=== PATIENT | female | born 1965 | race Caucasian/White ===

== ENCOUNTER 2017-03-16 09:24 | Inpatient (IN) | payer OTHER ==
--- NOTE | 2017-03-16 07:43 | HP ---
DATE OF SURGERY: 03/16/2017 HISTORY OF PRESENT ILLNESS: The patient is a 51 year-old had some recent rectal bleeding and underwent a colonoscopy and found to have sigmoid colon cancer now in need of resection. PAST MEDICAL HISTORY: Hypothyroidism, anxiety, chronic lung disease from smoking. She denies any other chronic illnesses. PAST SURGICAL HISTORY: Two sections in the past. MEDICATIONS: Levothyroxine. ALLERGIES: PENICILLILN, BEE VENOM. FAMILY HISTORY: Negative in regards to this problem. SOCIAL HISTORY: One pack per day smoker, denies alcohol abuse. REVIEW OF SYSTEMS: Twelve systems reviewed per admission assessment. No chest pain or palpitations other systems negative or noncontributory as above and per preadmission questionnaire. PHYSICAL EXAMINATION: GENERAL: No acute distress. HEENT: Sclerae nonicteric. NECK: No JVD. CHEST: Equal excursion, nonlabored breathing. CVS: Regular rate and rhythm. ABDOMEN: Soft. No peritoneal signs. EXTREMITIES: No significant edema. NEURO: Alert, oriented, moving extremities symmetrically. No gross motor deficits noted. 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 I feel the patient will benefit from resection. She was discussed the options of open versus laparoscopic assisted. Long discussion of risks and benefits and she wished to proceed with laparoscopic assisted partial colectomy, reanastomosis possible open, possible ostomy. Risks and benefits explained in detail including but not limited to bleeding or infection, risk of wound complications, hernia or dehiscence or infection, risk of bowel, bladder, blood vessel, ureter issues or injury, risk of bleeding from the spleen that could possibly require splenectomy, take down of splenic flexure if necessary as well as risk of ileus, adhesion, scar formation or obstruction perioperatively or down the road. Overall risk of anastomotic complication, fistula formation, abscess or other complications possibly requiring other procedures or even ostomy at a later date, general risk of anesthesia, deep venous thrombosis, pulmonary embolism or pneumonia, risk of renal insufficiency as well as the above but not limited to, laparoscopy converting to open procedure. He understands all the above but not limited to, will proceed with laparoscopic assisted partial colectomy reanastomosis, possible ostomy, possible open depending on operative findings. The patient's insurance requires she go to [facility] so wait until availability for OR time at [facility] to be scheduled at this time.
[~2017-03-16 09:24] MED LIST: Lactated Ringers 1,000 ML IV ONE; Sensorcaine 0.25% 10 ML ONE
[2017-03-16] MEDS ORDERED: Decadron 4 MG INJ IV ONE (09:28)
[2017-03-16] MEDS ORDERED: Zofran 4 MG/2 ML VIAL IV ONE (09:28)
[2017-03-16] MEDS ORDERED: TORAdol 30 mg Injection IV ONE (09:28)
[2017-03-16] MEDS ORDERED: DIPRIVAN 200 MG/20 ML IV ONE (09:28)
[2017-03-16] MEDS ORDERED: Naropin 0.5% 30 ML VIAL IJ ONE (09:28)
[2017-03-16] MEDS ORDERED: BRIDION 200MG/2ML IV ONE (09:28)
[2017-03-16] MEDS ORDERED: Epinephrine Preservative Free 1 MG/ML IJ ONE (09:28)
[2017-03-16] MEDS ORDERED: Zemuron 100 MG/10 ML IV ONE (09:28)
[2017-03-16] MEDS ORDERED: ENTEREG 12 MG PO ONE (09:50)
[2017-03-16] MEDS ORDERED: DILAUDID 2 MG INJECTION IV ONE (09:53)
[2017-03-16] MEDS ORDERED: SUBLIMAZE 250 MCG/5 ML IV ONE (09:53)
[2017-03-16] MEDS ORDERED: Valium 5 MG PO ONE (09:57)
[2017-03-16] MEDS ORDERED: Levofloxacin 500MG/100ML D5W 500 MG/100 ML BAG IV ONE (10:00)
[2017-03-16] MEDS ORDERED: Levofloxacin 500MG/100ML D5W 500 MG/100 ML BAG IV SCH (10:00)
[2017-03-16] MEDS ORDERED: Lactated Ringers 1,000 ML IV ONE (10:00)
[2017-03-16] MEDS ORDERED: CLINDAMYCIN-D5W 900 MG/50 ML*** 900 MG/50 ML BAG IV SCH (10:00)
[2017-03-16] MEDS ORDERED: Lactated Ringers 1,000 ML IV SCH (10:00)
[2017-03-16 10:27] LABS: Hematocrit 41.7 % (35-47); Hemoglobin 13.6 gm/dl (12.0-16.0); Mean Cell Volume 90.8 fl (78-100); Mean Corpuscular Hemoglobin 29.6 pg (26-32); Mean Corpuscular Hgb Concent. 32.6 g/dl (32-36); Mean Platelet Volume 12.5 fl (6-9.5); Platelet Count 227 K/mm3 (150-450); Red Blood Count 4.59 M/mm3 (4.1-5.4); Red Cell Distribution Width 14.1 % (11.5-14.0); White Blood Count 6.5 K/mm3 (4.0-10.5)
[2017-03-16 10:51] LABS: ALBUMIN 3.7 g/dL (3.4-5.0); ALKALINE PHOSPHATASE 80 U/L (46-116); ANION GAP 13.9 MEQ/L (5-15); BLOOD UREA NITROGEN 9 mg/dL (9-20); CHLORIDE 105 mEq/L (98-107); Calcium 9.3 mg/dL (8.5-10.1); Carbon Dioxide 24.4 mEq/L (21-32); Creatinine 1 0.65 mg/dl (0.55-1.30); EST GLOMERULAR FILTRATION RATE > 60 ML/MIN; Glucose 110 MG/DL (70-110); Potassium 3.7 mEq/L (3.5-5.1); SGOT/AST 18 U/L (15-37); SGPT/ALT 27 U/L (12-78); SODIUM 140 mEq/L (136-145); Total Protein 7.8 gm/dL (6.4-8.2)
[2017-03-16] MEDS ORDERED: Lactated Ringers 2,000 ML IV ONE (13:38)
[2017-03-16 13:53] LABS: Appearance CLEAR (CLEAR); Bilirubin NEGATIVE (NEGATIVE); Blood NEGATIVE Ery/ul (0-5); Glucose NEGATIVE (NEGATIVE); Ketones NEGATIVE (NEGATIVE); Leukocyte Esterase NEGATIVE (NEGATIVE); Nitrite NEGATIVE (NEGATIVE); Protein,Urine Dip NEGATIVE (Negative); Specific Gravity 1.005 (1.005-1.025); Urobilinogen NORMAL mg/dL (0-1)
[2017-03-16] MEDS ORDERED: DILAUDID 2 MG INJECTION ONE (17:33)
[2017-03-16] MEDS ORDERED: Zofran 4 MG/2 ML VIAL ONE (17:49)
[2017-03-16] MEDS ORDERED: SUBLIMAZE 100 MCG/2 ML ONE (17:49)
[2017-03-16] MEDS: DILAUDID 1 MG/1ML PCA IV PRN (18:35)
[2017-03-16] MEDS ORDERED: Merrem 1 GM 1 G in Sodium Chloride 100ML MINI-BAG PLUS 100 ML IV SCH (20:30)
[2017-03-16] MEDS: MEFOXIN 1 Gm/ D5W 50 Ml** 1 G/50 ML ML IV SCH (21:30)
[2017-03-17] MEDS: MEFOXIN 1 Gm/ D5W 50 Ml** 1 G/50 ML ML IV SCH ×3 (04:50→09:58)
[2017-03-17] MEDS: Zofran 4 MG/2 ML VIAL IV PRN ×2 (04:50→18:07)
[2017-03-17] MEDS: D5W/0.45NS W/ 20mEq KCl 1000 ML 1,000 ML IV SCH ×2 (04:51→18:14)
[2017-03-17 07:34] LABS: Hematocrit 39.2 % (35-47); Hemoglobin 12.3 gm/dl (12.0-16.0); Mean Cell Volume 92.5 fl (78-100); Mean Corpuscular Hgb Concent. 31.4 g/dl (32-36); Mean Platelet Volume 13.4 fl (6-9.5); Platelet Count 223 K/mm3 (150-450); Red Blood Count 4.24 M/mm3 (4.1-5.4); Red Cell Distribution Width 14.1 % (11.5-14.0); White Blood Count 12.8 K/mm3 (4.0-10.5)
[2017-03-17 08:16] LABS: ANION GAP 11.2 MEQ/L (5-15); BLOOD UREA NITROGEN 8 mg/dL (9-20); CHLORIDE 106 mEq/L (98-107); Calcium 9.1 mg/dL (8.5-10.1); Carbon Dioxide 28.5 mEq/L (21-32); Creatinine 1 0.69 mg/dl (0.55-1.30); EST GLOMERULAR FILTRATION RATE > 60 ML/MIN; Glucose 132 MG/DL (70-110); Potassium 4.3 mEq/L (3.5-5.1); SODIUM 141 mEq/L (136-145)
--- NOTE | 2017-03-17 08:39 | OP ---
SURGERY DATE/TIME: 03/16/2017 1237 PREOPERATIVE DIAGNOSIS: Sigmoid colon cancer status post polypectomy by Dr. Dominic Gandhi in the past, need for definitive resection for margins and lymph node sampling. POSTOPERATIVE DIAGNOSIS: Sigmoid colon cancer status post polypectomy by Dr. Dominic Gandhi in the past, need for definitive resection for margins and lymph node sampling. PROCEDURES: 1) Laparoscopic assisted sigmoid colon resection with primary reanastomosis. 2) Take down splenic flexure. 3) Completion colonoscopy (verifying tension-free viable air-tight anastomosis). SURGEON: Dr. Earl Nava. INFECTION PREVENTION PRACTITIONER Flavia Dong, Medical Student III. ANESTHESIA: General. ESTIMATED BLOOD LOSS: Minimal. INDICATIONS: As noted above. Risks and benefits explained in detail and not limited to and consent obtained. DESCRIPTION OF PROCEDURE AND FINDINGS: The patient is taken to the operating room. General anesthesia introduced. The abdomen prepped and draped in sterile fashion. After official time out and no disagreement with planned procedure, transverse incision made in the epigastrium. Fascia grasped and pulled up. Veress needle inserted and tested with saline. Pneumoperitoneum accomplished with opening pressure 0 to 15. A 5 mm bladeless port and camera inserted without difficulty followed by right upper quadrant and right lower quadrant 5 mm. Extensive adhesions from prior lower abdominal surgery this was carefully taken down safely with a combination of laparoscopic victoria, intermittent use of LigaSure device on vascular adhesions well away from any viscera staying well away from the colon. This took some time but slowly and carefully accomplished. Once this was accomplished the white line of Toldt was taken down elevating the colon upward with aid of the hook cautery dissecting up to the level of the splenic flexure via LigaSure device. The splenic flexure was taken down and mobilized carefully staying free from the well visualized spleen. Dissection was carried distally down to the pelvic brim staying on the white line of Toldt. Good hemostasis noted. Once this was accomplished the hand port had been placed in the lower abdomen through 7 to 7.5 cm skin incision. She had extensive old scar tissue from her old surgery that dissection was carried down to. Peritoneum entered sharply. Tubes, ovaries, uterus grossly unremarkable. This had been a sigmoid colon polypectomy that had cancer in it. However the site had not been marked. Therefore it took additional colon more proximally to insure that we indeed did get clear margin. Dissection carried down taking the specimen directly off, high ligation accomplished to the pedicle with some Vicryl ties. Mesenteric bed otherwise taken down and high ligated with aid of LigaSure device. The left ureter was visible and protected out laterally. It was peristalsing well. The right was protected off to the right. Dissection carried down and the sigmoid mobilized up into the wound protector to a point down what was felt to be the top of the rectal area. Once this was clear circumferentially just prior to using the contour stapler, the colonoscope is carefully inserted, passed up the colon to point it appeared to have scarring from the previous polypectomy site in the sigmoid colon at about 25 - 30 cm. The scope had been able to pass 50 cm with several centimeters proximal to the area that looked like it had been the polypectomy site. It was felt to have adequate margins. The scope is removed. New gown and gloves, scrubbed back in. Contour stapler used to take the rectal stump. Once this was accomplished. The length of sigmoid taken just up on the descending colon. It was felt that it would be safer than mobilizing the colon even a little more. I re-insufflated the abdomen and pulled the splenic flexure down even more than it had been mobilized. Again it was felt there was plenty of tension-free colon at this point. Good hemostasis noted. The spleen had good hemostasis. At this point released pneumoperitoneum using the sizer and the proximal end was opened. Sizer carefully inserted. It was felt the size was 29 EA stapler was best option to use. Therefore this anvil was placed in this end with a green pin placed just anterior to the staple line. It had been restapled prior to placing the anvil in via staple technique. Once this was accomplished, 3-0 PDS purse string placed to secure this site. Once this was accomplished the sizer had been passed rectally easily and followed by 29 staple passed up through anastomotic area. The pin was slowly and carefully opened just anterior to the staple line. Once the orange part was through in tension-free manner, the staple was then connected and showing the proximal end was not torsed or anything. Once this was accomplished and clipped in place the staple was tightened and then to the green zone right about the thinner wall of colon, staple fired. It was backed off. A half to three-quarter turn with staple easily removed. It appeared to be a tension-free, technically excellent viable anastomosis. At this point the proximal colon was pinched off and the endoscope passed back up. Completion colonoscopy accomplished of the descending colon area showing a viable air-tight and fluid in place in the pelvis. There was an air-tight tension-free viable anastomosis that was technically excellent. Picture had been taken of the anastomotic site. Again, no signs of any air-leak. At this time the colon and rectum were decompressed. Copious amount of irrigation irrigating until clear. A couple anterior seromuscular sutures had been placed anteriorly to reinforce the site. EULOGIO drain placed down in the pelvis without direct communication to the anastomosis itself, secured with PDS suture placed to bulb suction. At this point the abdomen was re-insufflated to carefully inspect the splenic area. Good hemostasis. The colon was nice and tension-free. She has no extra length but it was tension-free. At this point copious amount of irrigation irrigating until clear. All sponge, needle and instrument counts were correct x2 according to the OR nursing staff and techs. At this point pneumoperitoneum decompressed. Port removed. Clean towel, clean clothes and instructs, the fascia wound protector site, hand port site was closed with running looped PDS. Subcu irrigated out. Due to her obesity had some stool in the colon in the anastomosis. It was elected to go ahead and leave Iodoform packing to decrease the risk of any drainage. Therefore packing wick was placed in the middle. The skin was loosely stapled. The remaining port incision stapled. She was given abdominal binder, sterile dressing. There were no immediate complications. Findings discussed with the family out in the waiting area. Anesthesia applied tap blocks at the end of the procedure.
[2017-03-17] MEDS ORDERED: Artificial Tears 15 ML OP PRN (08:53)
[2017-03-17] MEDS: Nicoderm CQ 21 MG TOP SCH (09:57)
[2017-03-17] MEDS: ENOXAPARIN SODIUM SQ SCH (09:57)
[2017-03-17] MEDS: ENTEREG 12 MG PO SCH ×2 (09:58→21:34)
[2017-03-17] MEDS: SYNTHROID 150 MCG PO SCH (09:58)
[2017-03-18] MEDS: D5W/0.45NS W/ 20mEq KCl 1000 ML 1,000 ML IV SCH ×2 (05:40→15:24)
--- NOTE | 2017-03-18 07:40 | CONS ---
HISTORY OF PRESENT ILLNESS: This is a 51 year-old woman who had a consult for medical management after sigmoid colon laparoscopic resection with primary anastomosis. The patient has history of having a colonoscopy 01/09/2017 with three polyps. The pathology was malignancy. The patient was then sent to see an oncologist and then a general surgeon and her surgery on 03/16/2017. I was consulted for medical management. The patient reports that she continues to have some pain in her abdomen but that the RESEARCH BIOSTATISTICIAN does help with this. She does have a history of tobacco use and was asked if she would like to have a nicotine patch. She reports since her surgery having some redness of her right eye more along the lower eyelid. Her significant other reports that there was a little bit of matting after the surgery. She denies problems before that, a little bit of blurry vision. REVIEW OF SYSTEMS: No shortness of breath. No cough. No chest pain. She has abdominal pain as described. No lower extremity edema. No rashes. Otherwise the review of systems is negative. PAST MEDICAL HISTORY: Tobacco abuse, hypothyroidism. PAST SURGICAL HISTORY: section x2. MEDICATIONS: Levothyroxine 150 mcg p.o. daily. ALLERGIES: PENICILLIN, BEE VENOM. SOCIAL HISTORY: She smokes one pack per day, denies any alcohol use. FAMILY HISTORY: Her mother has been well. Her father had coronary artery disease. PHYSICAL EXAMINATION: VITAL SIGNS: Temperature current 98.1F, temperature max 98.1F, heart rate 64 to 98, respiratory rate 14 to 18, blood pressure 128 to 147 over 68 to 77. Oxygen saturation 94 to 95% on room air. GENERAL: The patient is a pleasant talkative lady lying in bed in no acute distress. CVS: She has a regular rate and rhythm. No murmurs, gallops or rubs. CHEST: Clear to auscultation bilaterally. ABDOMEN: She has a binder in place. No bowel sounds. EXTREMITIES: No clubbing, cyanosis or edema. SKIN: Warm, dry and intact. HEENT: Eyes her pupils are pinpoint but reactive. Extraocular movements are intact. She has some mild redness of her lower eyelids. No active discharge and minimal erythema of the conjunctiva of her right eye. ASSESSMENT AND PLAN: 1) COLON CANCER: The patient asked if we could go ahead and schedule an appointment with her oncologist, Dr. James, as he wanted to see her two weeks after her surgery so I asked staff to make this appointment for her and management after the surgery per the general surgeon. 2) HYPOTHYROIDISM: I will continue her on her home medication. 3) RIGHT EYE PAIN: She is on broad spectrum antibiotics. I explained that if there was any kind of bacterial infection this would take care of it and will try artificial tears at the bedside as needed. If she continues to have problems after her discharge will need to make a referral to an front office supervisor. 4) TOBACCO ABUSE: The patient reports that she wants to quit smoking. Nicotine patch was placed while she was here in the hospital.
[2017-03-18] MEDS: ENOXAPARIN SODIUM SQ SCH (08:33)
[2017-03-18] MEDS: SYNTHROID 150 MCG PO SCH (08:33)
[2017-03-18] MEDS: ENTEREG 12 MG PO SCH ×2 (08:33→22:28)
[2017-03-18] MEDS: Nicoderm CQ 21 MG TOP SCH (08:58)
[2017-03-18] MEDS ORDERED: FLUCELVAX QUAD 2017-2018 SYR IM ONE (10:00)
[2017-03-19] MEDS: D5W/0.45NS W/ 20mEq KCl 1000 ML 1,000 ML IV SCH ×2 (03:18→12:26)
[2017-03-19] MEDS: SYNTHROID 150 MCG PO SCH (08:59)
[2017-03-19] MEDS: ENOXAPARIN SODIUM SQ SCH (09:00)
[2017-03-19] MEDS: Nicoderm CQ 21 MG TOP SCH (09:00)
[2017-03-19] MEDS: ENTEREG 12 MG PO SCH ×2 (09:01→21:33)
[2017-03-19] MEDS: NORCO 5/325 MG PO PRN ×2 (15:51→19:58)
[2017-03-19] MEDS: DILAUDID 1 MG/1ML PCA IV PRN ×2 (19:20→21:38)
[2017-03-20] MEDS: D5W/0.45NS W/ 20mEq KCl 1000 ML 1,000 ML IV SCH (00:38)
[2017-03-20] MEDS: NORCO 5/325 MG PO PRN ×3 (00:53→13:41)
[2017-03-20] MEDS: Nicoderm CQ 21 MG TOP SCH (10:06)
[2017-03-20] MEDS: ENOXAPARIN SODIUM SQ SCH (10:07)
[2017-03-20] MEDS: ENTEREG 12 MG PO SCH (10:08)
[2017-03-20] MEDS: SYNTHROID 150 MCG PO SCH (10:08)
[2017-03-20 12:19] VITALS: BP 130/68; PULSE 80; O2SAT 95
== END 2017-03-20 15:47 | disposition home or self-care (01) | DRG 331 ==
LOC: SDC 09:24 → MED SURG 09:24 → EDSTATUS 10:34
PROVIDERS: ADMIT Surgery; ATTEND Surgery
PROC: 0DTN0ZZ Resection of Sigmoid Colon, Open Approach (ICD-10-PCS; principal; 2017-03-16)
PROC: 0DBL0ZZ Excision of Transverse Colon, Open Approach (ICD-10-PCS; 2017-03-16)
PROC: 0DBN8ZX Excision of Sigmoid Colon, Via Natural or Artificial Opening Endoscopic, Diagnostic (ICD-10-PCS; 2017-03-16)
DX: C18.7 Malignant neoplasm of sigmoid colon (principal); E03.9 Hypothyroidism, unspecified; H57.11 Ocular pain, right eye; Z72.0 Tobacco use; Z86.010 Personal history of colon polyps; F41.9 Anxiety disorder, unspecified; J98.4 Other disorders of lung
CPT/HCPCS: 00840; 36415; 64488; 76937; 76942; 80048; 80053; 81002; 84703; 85027; 87086; 88305; 94760; G0008; J0171; J0694; J1100; J1170; J1650; J1885; J1956; J2405; J2704; J2795; J3010; L0625; 90682; A9270-GY

== ENCOUNTER 2017-04-08 13:49 | Observation (INO) | payer OTHER ==
[2017-04-08] MEDS ORDERED: MORPHINE SULFATE 4 MG INJ IV ONE (14:14)
[2017-04-08] MEDS ORDERED: Zofran 4 MG/2 ML VIAL IV ONE (14:14)
[2017-04-08] MEDS ORDERED: Sodium Chloride 0.9% 1000 ML 1,000 ML IV STA (14:14)
--- NOTE | 2017-04-08 14:18 | ERPHSYRPT ---
- History of Present Illness Time Seen by Provider: 04/08/17 14:11 Historian: patient Exam Limitations: no limitations Patient Subjective Stated Complaint: PT STATES SHE HAS LEFT LOWER QUAD ABDOMINAL PAIN THAT STARTED LAST PM. STATES SHE HAD A COLON RESECTION MAR 16 2017 FOR COLON CANCER. Triage Nursing Assessment: PT PINK, WARM, DRY. ABDOMEN SOFT, TENDER IN LEFT LOWER QUAD. BOWEL SOUNDS HYPOACTIVE IN ALL 4 QAUDS. PT AFEBRILE. Physician History: 51-year-old white female status post colon resection March secondary to adenocarcinoma of the sigmoid colon. Patient arrives with complaint of pain in the left lower quadrant symptoms since last night she denies vomiting denies diarrhea states she has had some constipation she denies melena hematochezia does not have any fevers. Past medical history includes hypothyroidism, anxiety, chronic lung disease from smoking, GERD. Past surgical history includes 2, colon resection Timing/Duration: yesterday Activities at Onset: none Quality: aching, cramping Abdominal Pain Onset Location: LLQ Pain Radiation: no radiation Severity of Pain-Max: moderate Severity of Pain-Current: moderate Modifying Factors: Improves With: nothing Associated Symptoms: denies symptoms, No back, No chest pain, No diaphoresis, No diarrhea, No fever/chills, No fatigue, No headache, No heartburn, No loss of appetite, No nausea, No neck pain, No rash, No shortness of breath, No syncope, No vomiting, No weakness Previous symptoms: no prior history Allergies/Adverse Reactions: bee venom protein (honey bee) Allergy (Verified 04/08/17 14:09) Penicillins Allergy (Verified 04/08/17 14:09) Home Medications: Levothyroxine Sodium 150 Mcg [Synthroid 150 Mcg] 150 mcg PO DAILY 01/02/17 [History] Hx Tetanus, Diphtheria Vaccination/Date Given: Yes (UNKNOWN) Hx Influenza Vaccination/Date Given: Yes Hx Pneumococcal Vaccination/Date Given: No Immunizations Up to Date: Yes - Review of Systems Constitutional: No Fever, No Chills Eyes: No Symptoms Ears, Nose, & Throat: No Symptoms Respiratory: No Cough, No Dyspnea Cardiac: No Chest Pain, No Edema, No Syncope Abdominal/Gastrointestinal: No Abdominal Pain (left lower quadrant abdominal pain), No Nausea, No Vomiting, No Diarrhea Genitourinary Symptoms: No Dysuria Musculoskeletal: No Back Pain, No Neck Pain Skin: No Rash Neurological: No Dizziness, No Focal Weakness, No Sensory Changes Psychological: No Symptoms Endocrine: No Symptoms All Other Systems: Reviewed and Negative - Past Medical History Pertinent Past Medical History: Yes Neurological History: No Pertinent History ENT History: No Pertinent History Cardiac History: No Pertinent History Respiratory History: No Pertinent History Endocrine Medical History: Hypothyroidism Musculoskeletal History: No Pertinent History GI Medical History: GERD History: No Pertinent History Psycho-Social History: Anxiety Female Reproductive Disorders: No Pertinent History - Past Surgical History Past Surgical History: Yes Neuro Surgical History: No Pertinent History Cardiac: No Pertinent History Respiratory: No Pertinent History Gastrointestinal: No Pertinent History Genitourinary: No Pertinent History Musculoskeletal: No Pertinent History Female Surgical History: Section Other Surgical History: c-sec x2. COLON RESECTION MAR 16 2017 - Social History Smoking Status: Current every day smoker How long have you smoked: 38 Exposure to second hand smoke: Yes Drug Use: none Patient Lives Alone: No - Female History Hx Now: No - Nursing Vital Signs Nursing Vital Signs: Initial Vital Signs Pulse Rate 106 H 04/08/17 13:59 Respiratory Rate 20 04/08/17 13:59 Blood Pressure 135/97 04/08/17 13:59 O2 Sat by Pulse Oximetry 96 04/08/17 13:59 Pain Scale Pain Intensity 3 - Physical Exam General Appearance: moderate distress Eye Exam: PERRL/EOMI, eyes nml inspection Ears, Nose, Throat Exam: normal ENT inspection, pharynx normal, moist mucous membranes Neck Exam: normal inspection, non-tender, supple, full range of motion Respiratory Exam: normal breath sounds, lungs clear, No respiratory distress Cardiovascular Exam: regular rate/rhythm, normal heart sounds Gastrointestinal/Abdomen Exam: soft, normal bowel sounds, tenderness (left lower quadrant tenderness), No mass Back Exam: normal inspection, normal range of motion, No CVA tenderness, No vertebral tenderness Extremity Exam: normal inspection, normal range of motion, pelvis stable Neurologic Exam: alert, oriented x 3, cooperative, normal mood/affect, nml cerebellar function, sensation nml, No motor deficits Skin Exam: normal color, warm, dry SpO2 Interpretation: normal (96%) SpO2: 96 Oxygen Delivery: Room Air - Course Nursing assessment & vital signs reviewed: Yes - CT Exams Abdomen/Pelvis CT Interpretation: Discussed w/radiologist (CT of the abdomen and pelvis with contrast: impression: 1. Status post sigmoid colonic resection. Tiny cul-de- sac fluid either postsurgical hematoma/ seroma versus ruptured leaking cyst 2. Mild fecal stasis without obstruction 3. Remaining CT abdomen/pelvis with contrast exam is negative) Ordered Tests: Active Orders 24 hr Category Date Time Status Bedrest with BRP/BSC ROUTINE Activity 04/08/17 18:29 Active Admission/Status Order ROUTINE Care 04/08/17 18:29 Active Call Admit Doctor for Orders ON ADMISSION Care 04/08/17 18:29 Active Code Status Order ROUTINE Care 04/08/17 18:29 Active IV Care Q6H Care 04/08/17 18:29 Active IV Insertion STAT Care 04/08/17 14:14 Completed Vital Signs Q4H Care 04/08/17 18:29 Active Clear Liquid Diet 04/08/17 Breakfast Active ABDOMEN AND PELVIS W CONTRAST [CT] Stat Exams 04/08/17 15:39 Completed AMYLASE Stat Lab 04/08/17 14:35 Completed CBC W DIFF AM.LAB Lab 04/09/17 04:00 Ordered CBC W DIFF Stat Lab 04/08/17 14:35 Completed CMP AM.LAB Lab 04/09/17 04:00 Ordered CMP Stat Lab 04/08/17 14:35 Completed HCG QUALITATIVE,SERUM Stat Lab 04/08/17 14:35 Completed LIPASE Stat Lab 04/08/17 14:35 Completed UA W/RFX UR CULTURE Stat Lab 04/08/17 17:01 Completed Urine Triage Profile Stat Lab 04/08/17 17:01 Completed Transfer Order Routine Transfer 04/08/17 Completed Medication Summary Generic Name Dose Route Start Last Admin Trade Name Freq PRN Reason Stop Dose Admin Sodium Chloride 1,000 mls @ 100 mls/hr 04/08/17 18:29 04/08/17 18:44 Sodium Chloride 0.9% 1000 Ml IV 05/08/17 18:28 100 mls/hr .Q10H HUAN Administration Morphine Sulfate 4 mg 04/08/17 18:29 Morphine Sulfate 4 Mg Inj IV 04/13/17 18:28 Q4H PRN PRN PAIN Ondansetron HCl 4 mg 04/08/17 18:29 Zofran 4 Mg/2 Ml Vial IV 05/08/17 18:28 Q6H PRN PRN NAUSEA/VOMITING Discontinued Medications Generic Name Dose Route Start Last Admin Trade Name Rachel PRN Reason Stop Dose Admin Sodium Chloride 1,000 mls @ 999 mls/hr 04/08/17 14:14 04/08/17 14:40 Sodium Chloride 0.9% 1000 Ml IV 04/08/17 15:14 999 mls/hr .Q1H1M STA Administration Sodium Chloride Confirm 04/08/17 14:37 Sodium Chloride 0.9% 1000 Ml Administered 04/08/17 14:38 Dose 1,000 mls @ ud .ROUTE .STK-MED ONE Morphine Sulfate 4 mg 04/08/17 14:14 04/08/17 14:40 Morphine Sulfate 4 Mg Inj IV 04/08/17 14:15 4 mg STAT ONE Administration Morphine Sulfate Confirm 04/08/17 14:37 Morphine Sulfate 4 Mg Inj Administered 04/08/17 14:38 Dose 4 mg .ROUTE .STK-MED ONE Ondansetron HCl 4 mg 04/08/17 14:14 04/08/17 14:40 Zofran 4 Mg/2 Ml Vial IV 04/08/17 14:15 4 mg STAT ONE Administration Ondansetron HCl Confirm 04/08/17 14:37 Zofran 4 Mg/2 Ml Vial Administered 04/08/17 14:38 Dose 4 mg .ROUTE .STK-MED ONE Lab/Rad Data: Laboratory Result Diagrams 04/08/17 14:35 04/08/17 14:35 Laboratory Results 04/08/17 04/08/17 04/08/17 Range/Units 17:01 17:01 14:35 WBC (4.0-10.5) K/mm3 RBC (4.1-5.4) M/mm3 Hgb (12.0-16.0) gm/dl Hct (35-47) % MCV (78-100) fl MCH (26-32) pg MCHC (32-36) g/dl RDW (11.5-14.0) % Plt Count (150-450) K/mm3 MPV (6-9.5) fl Gran % (36.0-66.0) % Lymphocytes % (24.0-44.0) % Monocytes % (0.0-12.0) % Eosinophils % (0.00-5.0) % Basophils % (0.0-0.4) % Basophils # (0-0.4) Sodium (136-145) mEq/L Potassium (3.5-5.1) mEq/L Chloride (98-107) mEq/L Carbon Dioxide (21-32) mEq/L Anion Gap (5-15) MEQ/L BUN (9-20) mg/dL Creatinine (0.55-1.30) mg/dl Estimated GFR ML/MIN Glucose (70-110) MG/DL Calcium (8.5-10.1) mg/dL Total Bilirubin (0.2-1.0) mg/dL AST (15-37) U/L ALT (12-78) U/L Alkaline Phosphatase (46-116) U/L Serum Total Protein (6.4-8.2) gm/dL Albumin (3.4-5.0) g/dL Amylase (25-115) U/L Lipase (73-393) U/L Serum , Qual NEGATIVE (Negative) Ur Collection Type CCMS Urine Color YELLOW (YELLOW) Urine Appearance CLEAR (CLEAR) Urine pH 6.0 (5-6) Ur Specific [place] 1.010 (1.005-1.025) Urine Protein NEGATIVE (Negative) Urine Ketones NEGATIVE (NEGATIVE) Urine Blood NEGATIVE (0-5) Romero/ul Urine Nitrite NEGATIVE (NEGATIVE) Urine Bilirubin NEGATIVE (NEGATIVE) Urine Urobilinogen NORMAL (0-1) mg/dL Ur Leukocyte Esterase NEGATIVE (NEGATIVE) Urine Culture Reflexed NO (NO) Urine Glucose NEGATIVE (NEGATIVE) mg/dL Urine Opiates Level NEG. (NEGATIVE) Ur Methadone NEG. (NEGATIVE) Urine Barbiturates NEG. (NEGATIVE) Ur Phencyclidine (PCP) NEG. (NEGATIVE) Urine Amphetamine NEG. (NEGATIVE) U Benzodiazepine Level NEG. (NEGATIVE) Urine Cocaine NEG. (NEGATIVE) Urine Marijuana (THC) POS. (NEGATIVE) Specimen Received 04-08-17 [id number] 04/08/17 04/08/17 Range/Units 14:35 14:35 WBC 5.6 (4.0-10.5) K/mm3 RBC 4.41 (4.1-5.4) M/mm3 Hgb 13.0 (12.0-16.0) gm/dl Hct 40.1 (35-47) % MCV 90.9 (78-100) fl MCH 29.5 (26-32) pg MCHC 32.4 (32-36) g/dl RDW 13.7 (11.5-14.0) % Plt Count 278 (150-450) K/mm3 MPV 12.8 H (6-9.5) fl Gran % 61.5 (36.0-66.0) % Lymphocytes % 28.8 (24.0-44.0) % Monocytes % 8.5 (0.0-12.0) % Eosinophils % 1.2 (0.00-5.0) % Basophils % 0.0 (0.0-0.4) % Basophils # 0 (0-0.4) Sodium 141 (136-145) mEq/L Potassium 4.2 (3.5-5.1) mEq/L Chloride 107 (98-107) mEq/L Carbon Dioxide 23.9 (21-32) mEq/L Anion Gap 14.1 (5-15) MEQ/L BUN 9 (9-20) mg/dL Creatinine 0.61 (0.55-1.30) mg/dl Estimated GFR > 60 ML/MIN Glucose 103 (70-110) MG/DL Calcium 9.4 (8.5-10.1) mg/dL Total Bilirubin 0.20 (0.2-1.0) mg/dL AST 15 (15-37) U/L ALT 18 (12-78) U/L Alkaline Phosphatase 94 (46-116) U/L Serum Total Protein 8.1 (6.4-8.2) gm/dL Albumin 3.5 (3.4-5.0) g/dL Amylase 35 (25-115) U/L Lipase 104 (73-393) U/L Serum , Qual (Negative) Ur Collection Type Urine Color (YELLOW) Urine Appearance (CLEAR) Urine pH (5-6) Ur Specific [place] (1.005-1.025) Urine Protein (Negative) Urine Ketones (NEGATIVE) Urine Blood (0-5) Romero/ul Urine Nitrite (NEGATIVE) Urine Bilirubin (NEGATIVE) Urine Urobilinogen (0-1) mg/dL Ur Leukocyte Esterase (NEGATIVE) Urine Culture Reflexed (NO) Urine Glucose (NEGATIVE) mg/dL Urine Opiates Level (NEGATIVE) Ur Methadone (NEGATIVE) Urine Barbiturates (NEGATIVE) Ur Phencyclidine (PCP) (NEGATIVE) Urine Amphetamine (NEGATIVE) U Benzodiazepine Level (NEGATIVE) Urine Cocaine (NEGATIVE) Urine Marijuana (THC) (NEGATIVE) Specimen Received - Progress Progress: improved Progress Note: 04/08/17 15:59 51-year-old white female with history of bowel section secondary to adenocarcinoma with reanastomosis, arrives with complaint of left lower quadrant pain since last night patient without vomiting no diarrhea no melena. Patient moderately tender with palpation in the left lower quadrant. CBC is within normal limits patient is given morphine and IV fluids with improvement but still with abdominal pain. Will go ahead and obtain CT of the abdomen and pelvis with contrast. 04/08/17 18:01 CT of the abdomen and pelvis with contrast impression: 1. Status post sigmoid colonic resection. Tiny cul-de-sac fluid either postsurgical hematoma/seroma versus ruptured/leaking cyst. 2. Mild fecal stasis without obstruction. 3. Remaining CT abdomen and pelvis with contrast is negative. I've discussed the case with Dr. eisenberg the patient's family physician she requested that I discussed this with the surgeons I discussed this with Dr. Navarro. It is felt that the patient could be placed on observation IV fluids, patient admitted to Dr. eisenberg and he would a have one of the surgeons ( Will need a bed for awaitingmost likely Dr. Bond ),follow-up with the patient tomorrow morning. Will plan on placing the patient on IV fluids, morphine, Zofran 04/08/17 18:[address] eisenberg Will place on observation. - Departure Time of Disposition: 18:11 Departure Disposition: Observation Clinical Impression: Abdominal pain Qualifiers: Abdominal location: left lower quadrant Qualified Code(s): R10.32 - Left lower quadrant pain Condition: Fair Critical Care Time: No
[2017-04-08] MEDS ORDERED: MORPHINE SULFATE 4 MG INJ ONE (14:37)
[2017-04-08] MEDS ORDERED: Sodium Chloride 0.9% 1000 ML 1,000 ML ONE (14:37)
[2017-04-08] MEDS ORDERED: Zofran 4 MG/2 ML VIAL ONE (14:37)
[2017-04-08 14:43] LABS: Basophil (Absolute #) 0 (0-0.4); Eosinophil % 1.2 % (0.00-5.0); Eosinophil (Absolute #) 0.07 (0-0.5); Granulocyte Absolute (ANC) 3.46 (1.4-6.9); Granulocytes % 61.5 % (36.0-66.0); Hematocrit 40.1 % (35-47); Lymphocyte (Absolute #) 1.62 (1.0-4.6); Lymphocytes % 28.8 % (24.0-44.0); Mean Cell Volume 90.9 fl (78-100); Mean Corpuscular Hemoglobin 29.5 pg (26-32); Mean Corpuscular Hgb Concent. 32.4 g/dl (32-36); Mean Platelet Volume 12.8 fl (6-9.5); Monocyte (Absolute #) 0.48 (0.0-1.3); Monocytes % 8.5 % (0.0-12.0); Platelet Count 278 K/mm3 (150-450); Red Blood Count 4.41 M/mm3 (4.1-5.4); Red Cell Distribution Width 13.7 % (11.5-14.0); White Blood Count 5.6 K/mm3 (4.0-10.5)
[2017-04-08 15:05] LABS: ALBUMIN 3.5 g/dL (3.4-5.0); ALKALINE PHOSPHATASE 94 U/L (46-116); AMYLASE 35 U/L (25-115); ANION GAP 14.1 MEQ/L (5-15); BLOOD UREA NITROGEN 9 mg/dL (9-20); CHLORIDE 107 mEq/L (98-107); Calcium 9.4 mg/dL (8.5-10.1); Carbon Dioxide 23.9 mEq/L (21-32); Creatinine 1 0.61 mg/dl (0.55-1.30); EST GLOMERULAR FILTRATION RATE > 60 ML/MIN; Glucose 103 MG/DL (70-110); LIPASE 104 U/L (73-393); Potassium 4.2 mEq/L (3.5-5.1); SGOT/AST 15 U/L (15-37); SGPT/ALT 18 U/L (12-78); SODIUM 141 mEq/L (136-145); Total Protein 8.1 gm/dL (6.4-8.2)
--- NOTE | 2017-04-08 16:40 | XRAY ---
Indication: Abdominal pain. History carcinoma with resection March 17, 2017. Multiple contiguous axial images obtained through the abdomen and pelvis using 80 cc Isovue 370 contrast only. Comparison: January 16, 2017. Lung bases demonstrates minimal bibasilar dependent atelectasis with stable right middle lobe and lingular fibrosis/scarring. No suspicious pulmonary mass, infiltrate, or effusion. Heart is not enlarged. Noncontrasted stomach and bowel loops appear nonobstructed. There is no mild fecal debris in the ascending and transverse colon. There has been interval sigmoid resection with tiny cul-de-sac fluid either postsurgical hematoma/seroma versus rupture/leaking cyst. No walled off fluid collection or free air. Again previous appendectomy. Remaining liver, gallbladder, pancreas, spleen, adrenal glands, kidneys, ureters, bladder, and uterus appear normal in CT appearance and attenuation. Stable mild aortoiliac calcifications. No AAA or pathologic retroperitoneal lymphadenopathy. Osseous structures intact with minimal spinal degenerative changes. There are now lower anterior abdominal wall postsurgical changes without suspicious fluid/air collection. Impression: 1. Status post sigmoid colonic resection. Tiny cul-de-sac fluid either postsurgical hematoma/seroma versus ruptured/leaking cyst 2. Mild fecal stasis without obstruction. 3. Remaining CT abdomen/pelvis with contrast exam is negative. CT DI 22.72
[2017-04-08 17:21] LABS: Amphetamine,Urine NEG. (NEGATIVE); Barbiturate,Urine NEG. (NEGATIVE); Benzodiazepine,Urine NEG. (NEGATIVE); Cocaine,Urine NEG. (NEGATIVE); Methadone,Urine NEG. (NEGATIVE); Opiate,Urine NEG. (NEGATIVE); PCP,Urine NEG. (NEGATIVE); THC,Urine POS. (NEGATIVE)
[2017-04-08 17:38] LABS: Appearance CLEAR (CLEAR); Bilirubin NEGATIVE (NEGATIVE); Blood NEGATIVE Ery/ul (0-5); Glucose NEGATIVE (NEGATIVE); Ketones NEGATIVE (NEGATIVE); Leukocyte Esterase NEGATIVE (NEGATIVE); Nitrite NEGATIVE (NEGATIVE); Protein,Urine Dip NEGATIVE (Negative); Urobilinogen NORMAL mg/dL (0-1)
[2017-04-08] MEDS ORDERED: Zofran 4 MG/2 ML VIAL IV PRN (18:29)
[2017-04-08] MEDS: Sodium Chloride 0.9% 1000 ML 1,000 ML IV SCH (18:44)
[2017-04-08] MEDS ORDERED: MORPHINE SULFATE 2 MG INJ ONE (20:13)
[2017-04-08] MEDS: MORPHINE SULFATE 4 MG INJ IV PRN (20:14)
[2017-04-09] MEDS ORDERED: MORPHINE SULFATE 2 MG INJ ONE ×2 (02:03→06:33)
[2017-04-09] MEDS: MORPHINE SULFATE 4 MG INJ IV PRN (02:08)
[2017-04-09] MEDS: Sodium Chloride 0.9% 1000 ML 1,000 ML IV SCH (03:21)
[2017-04-09 05:47] LABS: BASOPHIL % 0.4 % (0.0-0.4); Basophil (Absolute #) 0.02 (0-0.4); Eosinophil % 2.3 % (0.00-5.0); Eosinophil (Absolute #) 0.11 (0-0.5); Granulocyte Absolute (ANC) 2.58 (1.4-6.9); Granulocytes % 53.7 % (36.0-66.0); Hemoglobin 11.5 gm/dl (12.0-16.0); Lymphocyte (Absolute #) 1.58 (1.0-4.6); Lymphocytes % 32.8 % (24.0-44.0); Mean Cell Volume 92.3 fl (78-100); Mean Corpuscular Hgb Concent. 31.9 g/dl (32-36); Mean Platelet Volume 12.6 fl (6-9.5); Monocyte (Absolute #) 0.52 (0.0-1.3); Monocytes % 10.8 % (0.0-12.0); Platelet Count 245 K/mm3 (150-450); Red Cell Distribution Width 13.8 % (11.5-14.0); White Blood Count 4.8 K/mm3 (4.0-10.5)
[2017-04-09 05:52] LABS: Mean Corpuscular Hemoglobin 29.4 pg (26-32)
[2017-04-09 06:13] LABS: ALBUMIN 2.9 g/dL (3.4-5.0); ALKALINE PHOSPHATASE 78 U/L (46-116); ANION GAP 10.4 MEQ/L (5-15); BLOOD UREA NITROGEN 10 mg/dL (9-20); CHLORIDE 109 mEq/L (98-107); Carbon Dioxide 25.6 mEq/L (21-32); Creatinine 1 0.61 mg/dl (0.55-1.30); EST GLOMERULAR FILTRATION RATE > 60 ML/MIN; Glucose 101 MG/DL (70-110); Potassium 4.1 mEq/L (3.5-5.1); SGOT/AST 12 U/L (15-37); SGPT/ALT 17 U/L (12-78); SODIUM 141 mEq/L (136-145); Total Protein 6.9 gm/dL (6.4-8.2)
[2017-04-09] MEDS ORDERED: MORPHINE SULFATE 2 MG INJ IV PRN (06:35)
[2017-04-09] MEDS ORDERED: MILK OF MAGNESIA 30 ML PO PRN (09:14)
[2017-04-09] MEDS ORDERED: TYLENOL 325 MG PO PRN (09:15)
[2017-04-09] MEDS ORDERED: Dextrose 5% -0.45 NaCl 1000 ML 1,000 ML IV SCH (09:15)
--- NOTE | 2017-04-09 09:35 | HP ---
HISTORY OF PRESENT ILLNESS: This is a 51 year-old lady who presented to the emergency department yesterday. She reports at 0400 hours yesterday she had sharp excruciating pain that woke her up from sleep and that she even screamed when this happened. She reports she tried Tylenol without any relief. She also reports that she called Dr. Nava's office and was instructed by his nurse to go to the emergency department which she did. She reports about a week after her surgery she has had constipation but has been taking Milk of Magnesia as directed by the surgeon's office almost every day and this helps. She reports she had a normal bowel movement sometime yesterday before she came to the emergency room. She denies seeing any blood in it. She denies any blood in her urine or any pain with urination. She continues to have the abdominal pain. She reports IV morphine we are giving her here helps. She does not have any periods anymore. She is post-menopausal. She reports the pain is in the left lower side near where the drain was removed and a little bit in her right lower abdomen. The patient initially had a colonoscopy on 01/09/2017 that revealed sigmoid colon polyps x3 with one noted to be large. The pathology came back that it was cancerous. She then saw Dr. Nava and had the colon resection on 03/16/2017. Also when we were working up the abdominal pain last year in November 2016, she had a transvaginal ultrasound that did not show any masses. REVIEW OF SYSTEMS: She denies fever. She did have some vomiting this morning but only vomited water. She has been NPO for about 24 hours now. Occasional cough. No rhinorrhea. No dyspnea. No lightheadedness. No lower extremity edema. No rashes. PAST MEDICAL HISTORY: Colon cancer status post resection on 03/16/2017 and cleared by her oncologist at this time with follow up. She told me she would not need to do any chemotherapy. PAST SURGICAL HISTORY: She had laparoscopic assisted sigmoid colon resection with primary re-anastomosis, splenic flexure take down and colonoscopy. That operative note also mentioned that she had adhesions from previous surgeries. She has had two sections. MEDICATIONS: Levothyroxine 150 mcg p.o. daily. ALLERGIES: BEE VENOM, PENICILLIN. SOCIAL HISTORY: She smokes ten cigarettes per day. She is and lives with her . She denies any alcohol use. She denies marijuana, cocaine or methamphetamine. FAMILY HISTORY: Her mother is living and is well. Her father from coronary artery disease when he was 75. She has two brothers with diabetes. PHYSICAL EXAMINATION: VITAL SIGNS: Temperature current 97.8F, temperature max 98.6F, heart rate 65 to 106 currently 65, respiratory rate 16 to 20, blood pressure 107 to 142 over 63 to 88, weight 85 kg. Oxygen saturation 92 to 98% on room air. GENERAL: The patient is a pleasant talkative lady lying in bed in no acute distress with her at the bedside. CVS: She has a regular rate and rhythm. No murmurs, gallops or rubs are appreciated. CHEST: Clear to auscultation bilaterally. No crackles or wheezes. ABDOMEN: She has mild left lower and right lower quadrant tenderness, hypoactive bowel sounds. No guarding. No rigidity. A well healed scar in the midline below her umbilicus, small scar where a drain was removed in the left lower quadrant. EXTREMITIES: No clubbing, cyanosis or edema. SKIN: Warm, dry and intact. LABORATORY DATA AND TESTS: White blood cell count on admission was 5.6 repeat this morning 4.8, hemoglobin 11.5 this a.m. Chloride 109, albumin 2.9. UA negative. Urine tox was positive for THC. CT abdomen and pelvis with contrast was read as status post sigmoid colonic resection, tiny cul-de-sac fluid either post-surgical hematoma/seroma versus ruptured/leaking cyst, mild fecal stasis without obstruction. It said remaining abdominal CT with contrast exam was negative. Please see the radiologist report for the full dictation. ASSESSMENT AND PLAN: 1) LEFT LOWER QUADRANT ABDOMINAL PAIN: The general surgeon has been consulted and plans to see her today. She is currently NPO. She has morphine ordered as needed for pain. On my exam she does not have an acute abdomen. I doubt that she had a ruptured cyst as she is post-menopausal at least not an ovarian cyst. She may be having pain from adhesions. I will await the surgeon's opinion as to the next steps. 2) CONSTIPATION: I will make sure she has some stool softeners ordered for her constipation with the pain medicine that she is going to be on. 3) HYPOTHYROIDISM: Will restart her levothyroxine. 4) TOBACCO ABUSE: The patient has been working on quitting smoking. I have given her a script for Chantix as an outpatient but she has not started taking this yet but she reports she has cut back from one pack per day to ten cigarettes per day and she would like to quit smoking and knows that it is in her best interest.
[2017-04-09] MEDS ORDERED: Colace 100 MG PO SCH (10:00)
[2017-04-09] MEDS ORDERED: SYNTHROID 150 MCG PO SCH (10:00)
[2017-04-09 11:26] VITALS: BP 136/80; PULSE 73; O2SAT 94
--- NOTE | 2017-04-10 09:48 | CONS ---
CONSULT DATE: 04/09/2017 REASON FOR CONSULT: Abdominal pain. HISTORY: This patient presents after laparoscopic sigmoid resection by one of my partners on 03/16/2017, with abdominal pain and constipation. The patient said she has had left lower quadrant pain since a couple of days after she got home. It has been worse over the last several days. She also had constipation since her surgery requiring Milk of Magnesia for her to have bowel movements. She has been eating well and having bowel movements when she takes Milk of Magnesia. She has no nausea or vomiting. No fevers or chills. PAST MEDICAL HISTORY: Colon cancer. PAST SURGICAL HISTORY: Laparoscopic sigmoidectomy. section x2. MEDICATIONS: Synthroid. ALLERGIES: PENICILLIN. SOCIAL HISTORY: Positive for tobacco. FAMILY HISTORY: Coronary artery disease. LAB DATA AND TESTS: CT scan showed status post sigmoid resection, tiny amount of fluid in the cul-de-sac, mild fecal stasis. PHYSICAL EXAMINATION: GENERAL: No acute distress. CHEST: Non-labored breathing. ABDOMEN: Soft, nondistended, minimally tender in left lower quadrant. ASSESSMENT AND PLAN: Abdominal pain status post laparoscopic sigmoid colon resection. I suspect that this pain is a combination of incisional pain as well as constipation. Will try the patient on tramadol as she is out of her narcotics and they were worsening her constipation. I recommend starting MiraLAX once daily as well as Milk of Magnesia once or twice daily as needed for bowel movement every day. The patient has a very benign abdomen and CT scan looks good. I will plan to have the patient follow up with Dr. Nava in the office.
== END 2017-04-09 13:50 | disposition home or self-care (01) ==
LOC: ED 13:49 → MED SURG 18:28
PROVIDERS: ADMIT Internal Medicine; ATTEND Internal Medicine
DX: R10.32 Left lower quadrant pain (principal); K59.00 Constipation, unspecified; E03.9 Hypothyroidism, unspecified; Z72.0 Tobacco use; Z85.038 Personal history of other malignant neoplasm of large intestine; Z90.49 Acquired absence of other specified parts of digestive tract
CPT/HCPCS: 36000; 36415; 74177; 80053; 80307; 81002; 82150; 83690; 84703; 85025; 96360; 96374; 96375; 99285; G0378; J2270; J2405; A9270-GY

== ENCOUNTER 2018-02-01 09:02 | Day surgery (SDC) | payer OTHER ==
--- NOTE | 2018-02-01 08:51 | HP ---
DATE OF SURGERY: 02/01/2018 HISTORY OF PRESENT ILLNESS: The patient is a 52 year-old with no bloody stools, no change in bowel movements, no pain. Family history negative for colon cancer. She has a personal history of colon cancer and is in need of follow up colonoscopy. PAST MEDICAL HISTORY: Hypothyroidism, colon cancer. PAST SURGICAL HISTORY: Previous assisted partial colectomy with reanastomosis in the past. She has had colonoscopies in the past. MEDICATIONS: Thyroid medication in the past. ALLERGIES: PENICILLIN. FAMILY HISTORY: Breast cancer, myocardial infarction. Negative for colon cancer. SOCIAL HISTORY: One pack per day smoker. Denies alcohol abuse. REVIEW OF SYSTEMS: Twelve systems reviewed. No chest pain or palpitations other systems negative or noncontributory as above and per preadmission questionnaire. PHYSICAL EXAMINATION: GENERAL: No acute distress. HEENT: Sclerae nonicteric. NECK: No JVD. CHEST: Equal excursion, nonlabored breathing. CVS: Regular rate and rhythm. ABDOMEN: Soft. No peritoneal signs. EXTREMITIES: No significant edema. NEURO: Alert, oriented, moving extremities symmetrically. No gross motor deficits noted. RECTAL: Deferred timed to endoscopy exam. IMPRESSION: History of colon cancer in need of follow up colonoscopy. I feel she is a candidate. Risks and benefits explained in detail including but not limited to bleeding or infection, small risk of bowel injury or perforation possibly requiring open procedure, risk of missed or nondiagnosis or incomplete exam possibly requiring barium enema, other studies or procedures, general risk of anesthesia or sedation but not limited to. She understands and agrees to the planned procedure and will proceed with outpatient follow up screening colonoscopy.
[~2018-02-01 09:02] MED LIST changes: -Lactated Ringers 1,000 ML IV ONE; +Lactated Ringers 1,000 ML IV SCH; -Sensorcaine 0.25% 10 ML ONE
[2018-02-01] MEDS ORDERED: DIPRIVAN 200 MG/20 ML IV ONE (09:03)
[2018-02-01] MEDS ORDERED: Ketamine HCl 50 MG/ML IV ONE (09:03)
[2018-02-01] MEDS ORDERED: Lactated Ringers 1,000 ML IV ONE (11:19)
[2018-02-01 12:45] VITALS: BP 127/78; PULSE 80; O2SAT 97
--- NOTE | 2018-02-01 14:51 | OP ---
SURGERY DATE/TIME: 02/01/2018 1120 PREOPERATIVE DIAGNOSIS: History of colon cancer status post resection, need for follow up colonoscopy. POSTOPERATIVE DIAGNOSES: 1) Small polyp left colon. 2) Small raised lesion versus hyperplastic lesion of rectum. 3) Small internal and external hemorrhoids. PROCEDURES: 1) Colonoscopy to cecum, hot snare polypectomy. 2) Small left colon polyp. 3) Hot biopsy removal of small raised lesion versus hyperplastic lesion versus early polyps rectum. SURGEON: Dr. Earl Nava. ANESTHESIA: MAC. ESTIMATED BLOOD LOSS: Minimal. INDICATIONS: As noted above. Risks and benefits explained in detail but not limited to and consent obtained. DESCRIPTION OF PROCEDURE AND FINDINGS: The patient is taken to the operating room. MAC anesthesia introduced. After official time out and no disagreement with planned procedure, digital rectal exam did not reveal any rectal masses. She did some small internal and external hemorrhoids. Video colonoscope inserted and passed up through the patent anastomosis. No evidence of recurrence. Through the left colon, transverse colon, ascending colon to cecum, appendiceal orifice and valve well visualized. Prep overall was adequate to fair as some areas with some thick liquidy semi-solid stool limiting the exam this was suction irrigated as well as possible just slightly limiting the exam for very small lesions. On slow careful withdrawal of the scope there were no signs of any large polyps, masses or obstructing lesions. There was a small 2.5 to 3 mm polyp in the left colon proximal to anastomotic site that was removed with hot snare polypectomy with brief bursts of cautery. Good hemostasis noted. Otherwise the scope pulled through the anastomotic area which is widely patent. No evidence of any cancer recurrence. In the rectum more distally to this anastomotic site a few small raised versus hyperplastic lesions removed with hot biopsy forceps with brief bursts of cautery. Good hemostasis noted. There were no signs of any large polyps, masses or obstructing lesions. She did have some small internal and external hemorrhoids. Scope is withdrawn. Findings discussed with the family out in the waiting area.
== END 2018-02-01 12:35 | disposition home or self-care (01) ==
LOC: SDC 09:02
PROVIDERS: ATTEND Surgery
DX: K63.5 Polyp of colon (principal); Z85.038 Personal history of other malignant neoplasm of large intestine; Z90.49 Acquired absence of other specified parts of digestive tract; K63.9 Disease of intestine, unspecified; K64.4 Residual hemorrhoidal skin tags; K64.8 Other hemorrhoids; E03.9 Hypothyroidism, unspecified; Z72.0 Tobacco use
CPT/HCPCS: 84703; 88305; 94250; J2704

== ENCOUNTER 2019-02-21 08:14 | Day surgery (SDC) | payer OTHER ==
[2019-02-21] MEDS ORDERED: Lactated Ringers 1,000 ML IV ONE (08:21)
[2019-02-21] MEDS ORDERED: Lactated Ringers 1,000 ML IV SCH (08:30)
--- NOTE | 2019-02-21 08:59 | HP ---
DATE OF SURGERY: 02/21/2019 HISTORY OF PRESENT ILLNESS: The patient is a 53 year-old with prior history of some colon cancer in the past. She had laparoscopic assisted partial colectomy at that time. No bloody stools. Family history negative for colon cancer. No recent changes in her bowel movements. With history of colon cancer and polyps in the past she is in need of follow up colonoscopy. PAST MEDICAL HISTORY: Colon cancer. Hypothyroidism in the past. PAST SURGICAL HISTORY: Laparoscopic assisted partial colectomy. MEDICATIONS: Levothyroxine. ALLERGIES: PENICILLIN. BEE VENOM. FAMILY HISTORY: Negative in regards to this problem. SOCIAL HISTORY: One pack per day smoker. Denies alcohol abuse. REVIEW OF SYSTEMS: Fourteen systems reviewed per admission assessment. No chest pain or palpitations other systems negative or noncontributory as above and per preadmission questionnaire. PHYSICAL EXAMINATION: GENERAL: No acute distress. HEENT: Sclerae nonicteric. NECK: No JVD. CHEST: Equal excursion, nonlabored breathing. CVS: Regular rate and rhythm. ABDOMEN: Soft. No peritoneal signs. EXTREMITIES: No significant edema. NEURO: Alert, oriented, moving extremities symmetrically. No gross motor deficits noted. RECTAL: Deferred timed to endoscopy exam. IMPRESSION: History of colon cancer, history of polyps in the past. She is need of screening colonoscopy. I feel she is a candidate. Risks and benefits explained in detail but not limited to bleeding or infection, risk of bowel injury or perforation possibly requiring open procedure, risk of missed or nondiagnosis or incomplete exam possibly requiring barium enema, other studies or procedures, general risk of anesthesia or sedation but not limited to. She understands and agrees to the planned procedure, will proceed with outpatient colonoscopy.
[2019-02-21] MEDS ORDERED: DIPRIVAN 200 MG/20 ML IV ONE ×2 (10:01→10:12)
[2019-02-21 11:16] VITALS: O2SAT 95
[2019-02-21 11:29] VITALS: BP 142/81; PULSE 72
--- NOTE | 2019-02-21 13:33 | OP ---
SURGERY DATE/TIME: 02/21/2019 1003 PREOPERATIVE DIAGNOSIS: Prior history of polyps, prior history of colon cancer status post resection, need for follow up screening colonoscopy. POSTOPERATIVE DIAGNOSES: 1) A 4 to 5 mm polyp descending colon. 2) Smooth vague raised area versus hyperplasia of mucosa, path pending cecum. 3) Diverticulosis. 4) Small internal hemorrhoids. 5) Fair bowel prep. PROCEDURES: 1) Colonoscopy to cecum with hot biopsy of vague smooth raised area of cecum. 2) Hot snare polypectomy 4 to 5 mm polyp descending colon. SURGEON: Dr. Earl Nava. ANESTHESIA: MAC. ESTIMATED BLOOD LOSS: Minimal. INDICATIONS: As noted above. Risks and benefits explained in detail but not limited to and consent obtained. DESCRIPTION OF PROCEDURE AND FINDINGS: The patient is taken to the operating room. MAC anesthesia introduced. After official time out and no disagreement with planned procedure, digital rectal exam did not reveal any rectal masses. He did have some small internal and external hemorrhoids. Video colonoscope passed up through the prior patent anastomosis. No evidence of any recurrence. Scope was able to be passed around with external pressure around the transverse colon, ascending colon to the cecum. Appendiceal orifice and valve well visualized. There is a small amount of liquidy stool suction irrigated as clear as possible just slightly limiting exam for very tiny lesions. Overall fair bowel prep. There was a vague but smooth appearing raised area in the fold on the cecum this is biopsied with hot biopsy forceps with brief bursts of cautery. Good hemostasis noted. The scope is then slowly and carefully withdrawn over the next seven minutes. It should be noted that some diverticulosis. She did have the 4 to 5 mm polyp in the descending colon removed with hot snare polypectomy with brief bursts of cautery. Good hemostasis noted. It appeared to be removed in toto. The scope is then pulled back to anastomotic area the top part of the rectum, this was widely patent. No evidence of any recurrence. Otherwise she had some small internal hemorrhoids. There were no signs of any other large polyps, masses or obstructing lesions. The patient tolerated the procedure well. I will discuss the findings with family out in the waiting area.
== END 2019-02-21 11:28 | disposition home or self-care (01) ==
LOC: SDC 08:14 → EDSTATUS 10:59 → SDC 11:28
PROVIDERS: ATTEND Surgery
DX: Z08 Encounter for follow-up examination after completed treatment for malignant neoplasm (principal); Z85.038 Personal history of other malignant neoplasm of large intestine; Z90.49 Acquired absence of other specified parts of digestive tract; D12.4 Benign neoplasm of descending colon; Z86.010 Personal history of colon polyps; K57.30 Diverticulosis of large intestine without perforation or abscess without bleeding; K64.8 Other hemorrhoids; K64.4 Residual hemorrhoidal skin tags; K52.9 Noninfective gastroenteritis and colitis, unspecified
CPT/HCPCS: 88305; J2704

== ENCOUNTER 2020-09-03 09:54 | Day surgery (SDC) | payer OTHER ==
--- NOTE | 2020-09-03 09:06 | HP ---
DATE OF SURGERY: 09/03/2020 HISTORY OF PRESENT ILLNESS: The patient is a 54 year-old denies any bloody stools, denies change in bowel. History of colon cancer in the past. History of polyps in the past. She is in need of follow up screening colonoscopy. Descending colon polyp last endoscopy. PAST MEDICAL HISTORY: Colon cancer, hyperthyroidism in the past. PAST SURGICAL HISTORY: She had partial colectomy in the past. She had cholecystectomy in the past. MEDICATIONS: She takes a thyroid medication the name of which she does not know. ALLERGIES: PENICILLIN. BEE VENOM. FAMILY HISTORY: Negative for colon cancer, SOCIAL HISTORY: One pack per day smoker, denies alcohol abuse. REVIEW OF SYSTEMS: Fourteen systems reviewed. No chest pain or palpitations. Other systems negative or noncontributory as above and per preadmission questionnaire. PHYSICAL EXAMINATION: GENERAL: No acute distress. HEENT: Sclerae nonicteric. NECK: No JVD. CHEST: Equal excursion, nonlabored breathing. CVS: Regular rate and rhythm. ABDOMEN: Soft. No peritoneal signs. EXTREMITIES: No significant edema. NEURO: Alert, oriented, moving extremities symmetrically. No gross motor deficits noted. PSYCH: Appropriate mood and affect. IMPRESSION: History of polyps, personal history of colon cancer in need of follow up screening colonoscopy. I feel she is a candidate Risks and benefits explained in detail but not limited to bleeding or infection, risk of bowel injury or perforation possibly requiring open procedure, risk of missed or nondiagnosis or incomplete exam possibly requiring barium enema, other studies or procedures, general risk of anesthesia or sedation, risk of bowel prep but not limited to, consent obtained, will proceed with outpatient colonoscopy under MAC anesthesia.
[2020-09-03] MEDS ORDERED: Lactated Ringers 1,000 ML IV SCH (10:30)
[2020-09-03] MEDS ORDERED: DIPRIVAN 200 MG/20 ML IV ONE ×2 (12:24→12:41)
[2020-09-03 13:48] VITALS: BP 124/82; PULSE 64; O2SAT 98
--- NOTE | 2020-09-04 11:41 | OP ---
SURGERY DATE/TIME: 09/03/2020 1228 PREOPERATIVE DIAGNOSIS: Prior history of colon cancer, history of polyps, need for follow up screening colonoscopy. POSTOPERATIVE DIAGNOSES: 1) Polyps ascending colon, descending colon as well as rectum. 2) ASA Class II. 3) Withdrawal time 8 minutes. 4) Fair bowel prep. 5) No evidence of recurrence, widely patent colorectal anastomosis. PROCEDURES: 1) Colonoscopy to cecum. 2) Hot snare polypectomy of approximately 5 mm ascending colon polyp. 3) Hot biopsy polypectomy of even smaller ascending colon polyp. 4) Hot biopsy polypectomy of early polyp versus hyperplastic lesion descending colon. 5) Hot biopsy polypectomy removal of early polyps versus hyperplastic lesion in the rectum x4 or 5. SURGEON: Dr. Earl Nava. ANESTHESIA: MAC. ESTIMATED BLOOD LOSS: Minimal. INDICATIONS: As noted above. Risks and benefits explained in detail but not limited to and consent obtained. DESCRIPTION OF PROCEDURE AND FINDINGS: The patient is taken to the operating room. MAC anesthesia introduced. After official time out and no disagreement with planned procedure, digital rectal exam did not reveal any rectal masses. Video colonoscope inserted and passed up through the rectum up through the patent prior anastomotic site which is widely patent. No evidence of any recurrence. The scope was passed around the descending and transverse colon around to the ascending colon and cecum. Appendiceal orifice and valve well visualized and photo documented. Prep overall was fair. The scope is then carefully withdrawn over the 8 minutes. There was a polyp in the proximal half of ascending colon measured about 5 mm. It is removed with hot snare polypectomy with brief bursts of cautery. Another little, tiny 2 mm one removed with hot biopsy forceps with brief bursts of cautery. Good hemostasis noted in both of these sites. The scope is slowly and carefully withdrawn. There was a very tiny early polyp versus hyperplastic lesion in the descending colon removed with hot biopsy forceps with brief bursts of cautery. Good hemostasis noted. Otherwise the scope is pulled back through the patent anastomosis. No evidence of any cancer recurrence. It is widely patent. No evidence of recurrence. The scope is pulled back down the rectum where there were four or five little, small 1.5 mm to 2 mm early polyps or hyperplastic lesions. These were removed with hot biopsy forceps with brief bursts of cautery. Good hemostasis noted. The scope is withdrawn. The patient tolerated the procedure well. I will go to the waiting area to see if there was any family to discuss the findings with.
== END 2020-09-03 13:45 | disposition home or self-care (01) ==
LOC: SDC 09:54
PROVIDERS: ATTEND Surgery
DX: Z12.11 Encounter for screening for malignant neoplasm of colon (principal); Z85.038 Personal history of other malignant neoplasm of large intestine; Z86.010 Personal history of colon polyps; Z08 Encounter for follow-up examination after completed treatment for malignant neoplasm; K62.1 Rectal polyp; Z79.899 Other long term (current) drug therapy; D12.6 Benign neoplasm of colon, unspecified; D12.2 Benign neoplasm of ascending colon; D12.4 Benign neoplasm of descending colon
CPT/HCPCS: 88305; J2704